=== PATIENT | female | born 2005 | race Caucasian/White ===

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

== ENCOUNTER 2023-02-21 03:01 | Emergency (ER) | payer BC, SELFPAY ==
[2023-02-21 03:05] VITALS: BP 149/110; PULSE 103; RESP 18; TEMP 36.9; O2SAT 99; BMI 45.6
--- NOTE | 2023-02-21 03:05 | ED_ITS ---
HPI - Abdominal Pain General: Chief Complaint: Nausea/Vomiting/Diarrhea Stated Complaint: vomiting blood, abd pain Time Seen by Provider: 02/21/23 03:02 History of Present Illness: Ms Montero is a 17-year-old female with significant past medical history of bulimia presented to the emergency department for hematemesis. She reports over the past few days not eating much and was at work tonight when she felt nauseous. She has had intermittent midepigastric pain and she vomited red blood mixed with mucousy looking substances. Denies associated fever. She has had mild lightheadedness. She reports vomiting less than normal with her bulimia lately and mostly just not eating. Intensity symptoms is moderate. Course has persisted. She does report 1 prior episode a few months ago of vomiting blood twice. No other specific changes in health, exacerbating, or alleviating factor s identified. Onset (ago): day(s) Location: Epigastric Quality: burning Associated Symptoms: Reports hematemesis and nausea; Denies coffee ground emesis, hematochezia and melena Review of Systems General: Reports: 10 or more systems reviewed and unremarkable except in HPI and below GI: Reports: nausea and hematemesis; Denies: coffee ground emesis, hematochezia or melena PFSH ED PFSH: Medical History Psychiatric care Trauma and stressor-related disorder Social History Smoking and tobacco status: former smoker Quit status (tobacco): has quit using tobacco Year quit tobacco: 2021 Second hand smoke exposure: Yes (Occ.) Smoking risk assessment/counseling performed?: No Alcohol intake: never Desire information about alcohol rehabilitation?: No Counseling given: No Substance/Drug Use: former Date of last use: 2021 Desire information about substance/drug rehabilitation?: No Counseling given: No Physical Exam Const: COMMON NORMALS: alert GENERAL APPEARANCE: cooperative and well developed HENMT: COMMON NORMALS: normocephalic and atraumatic HEAD & SCALP: norm ocephalic and atraumatic Eye: COMMON NORMALS: conjunctivae normal CONJUNCTIVA: Yes conjunctivae normal SCLERA: sclerae normal Neck/C-Spine: COMMON NORMALS: supple GENERAL: Yes trachea midline Resp: COMMON NORMALS: clear to auscultation bilaterally EFFORT & INSPECTION: Yes able to speak in complete sentences AUSCULTATION: clear to auscultation bilaterally Cardio: COMMON NORMALS: regular rhythm RATE: tachycardic RHYTHM: regular rhythm GI: COMMON NORMALS: Soft to palpation PALPATION: Yes Soft to palpation, No Tenderness to palpation present (GI), No Guarding due to palpation present (GI) and No Rigid due to palpation Extremity: GENERAL: Yes normal exam except as noted and No edema Neuro: COMMON NORMALS: moves all extremities SENSORIUM/ORIENTATION: Yes alert and No Orientation impaired Psych: COMMON NORMALS: mental status grossly normal and Normal thought process present THOUGHT PROCESS: Normal thought process present Course Vital Signs: Vital signs: Vital Signs Temperature 98.4 F 02/21/23 03:05 Pulse Rate 84 02/21/23 05:03 Respiratory Rate 18 02/21/23 05:03 Blood Pressure 117/87 02/21/23 05:03 Pulse Oximetry 96 02/21/23 05:03 Oxygen Delivery Me thod Room Air 02/21/23 03:52 MDM - Abdominal Pain Medical Decision Making 17-year-old female with history of bulimia presenting with episode of vomiting blood. Exam as above. Patient is nontoxic. No evidence of acute surgical abdomen or active hematemesis. EKG notable for sinus rhythm with normal axis and intervals, no STEMI. Labs with normal hemoglobin, no leukocytosis. Unremarkable metabolic panel. Normal coags. hCG negative. No UTI, perhaps mild dehydration given positive ketones. Chest x-ray with no lobar consolidation or pneumothorax. Patient treated with Protonix, analgesia, fluids, antiemetic. On reassessment she has not had recurrence and appears clinically improved and feels improved. Most likely allergy of symptoms is gastritis related hematemesis. Patient does not appear to need inpatient management at this time. Strict return precautions given. Plan to refer for outpatient endoscopy. The results of ED evaluation were discussed with the patient including prescriptions and/or symptomatic cares (if applicable) including appropriate and responsible use, followup plan, and return precautions. The patient verbalized understanding and felt safe for discharge. Medical Records I reviewed the patient's medical records. Lab Data I reviewed the patient's lab results. 02/21/23 03:13 02/21/23 03:13 Labs/Radiology: Radiology Impressions Chest X-Ray 02/21/23 03:59 IMPRESSION: No acute findings. Laboratory Results WBC 11.5 10^3/uL (4.5-13.0) 02/21/23 03:13 RBC 5.07 10^6/uL (4.1-5.3) 02/21/23 03:13 Hgb 13.1 g/dL (11.5-15.3) 02/21/23 03:13 Hct 41.3 % (37.0-47.0) 02/21/23 03:13 MCV 81.5 fl (81-99) 02/21/23 03:13 MCH 25.8 pg (28.0-34.0) L 02/21/23 03:13 MCHC 31.7 g/dL (30.0-36.0) 02/21/23 03:13 RDW 14.2 % (12.1-15.1) 02/21/23 03:13 Plt Count 483 10^3/cmm (130-400) H 02/21/23 03:13 MPV 9.3 fL (7.4-10.4) 02/21/23 03:13 Neut % (Auto) 66.8 % 02/21/23 03:13 Lymph % (Auto) 27.8 % 02/21/23 03:13 [place] % (Auto) 3.6 % 02/21/23 03:13 Eos % (Auto) 1.0 % 02/21/23 03:13 Baso % (Auto) 0.4 % 02/21/23 03:13 Neut # (Auto) 7.71 10^3/uL (1.8-8.0) 02/21/23 03:13 Lymph # (Auto) 3.2 10^3/uL (1.5-6.5) 02/21/23 03:13 [place] # (Auto) 0.4 10^3/uL (0.2-0.9) 02/21/23 03:13 Eos # (Auto) 0.1 10^3/uL (0.0-0.8) 02/21/23 03:13 Baso # (Auto) 0.1 10^3/uL (0.0-0.1) 02/21/23 03:13 Nucleated RBC % (auto) 0 % 02/21/23 03:13 Nucleated RBCs # 0.0 /100WBC 02/21/23 03:13 PT 14.00 SECONDS (12.1-14.9) 02/21/23 03:13 INR 1.04 (0.8-1.2) 02/21/23 03:13 Sodium 139 mmol/L (136-145) 02/21/23 03:13 Potassium 3.7 mmol/L (3.5-5.1) 02/21/23 03:13 Chloride 104 mmol/L (98-107) 02/21/23 03:13 Carbon Dioxide 23 mmol/L (22-29) 02/21/23 03:13 Anion Gap 15.7 (5-19) 02/21/23 03:13 BUN 10 mg/dL (6-20) 02/21/23 03:13 Creatinine 0.8 mg/dL (0.5-0.9) 02/21/23 03:13 GFR Calculation 92.4 mL/min (90-130) 02/21/23 03:13 Glucose 73 mg/dL (65-115) 02/21/23 03:13 Calculated Osmolality 286 mOsm/kg (285-295) 02/21/23 03:13 Calcium 9.3 mg/dL (8.5-10.5) 02/21/23 03:13 Total Bilirubin 0.4 mg/dL (0.15-1.2) 02/21/23 03:13 AST 14 U/L (0-32) 02/21/23 03:13 ALT 10 U/L (0-33) 02/21/23 03:13 Alkaline Phosphatase 66 U/L (35-105) 02/21/23 03:13 Total Protein 7.7 g/dL (6.6-8.7) 02/21/23 03:13 Albumin 4.3 g/dL (3.5-5.2) 02/21/23 03:13 Globulin 3.4 g/dL (1.3-4.6) 02/21/23 03:13 Lipase 17 U/L (13-60) 02/21/23 03:13 HCG, Qual Negative (Negative) 02/21/23 03:13 Urine Color Yellow (Yellow) 02/21/23 03:59 Urine Appearance Clear (CLEAR) 02/21/23 03:59 Urine pH 5 (5-7) 02/21/23 03:59 Ur Specific [place] 1.030 (1.005-1.030) 02/21/23 03:59 Urine Protein Neg (Negative) 02/21/23 03:59 Urine Glucose (UA) Norm (Normal) 02/21/23 03:59 Urine Ketones 2+ (Negative) H 02/21/23 03:59 Urine Blood Neg (Negative) 02/21/23 03:59 Urine Nitrate Negative (Negative) 02/21/23 03:59 Urine Bilirubin Neg (Negative) 02/21/23 03:59 Urine Urobilinogen Neg mg/dL (Negative) 02/21/23 03:59 Ur Leukocyte Esterase Negative (Negative) 02/21/23 03:59 Discharge Plan Discharge Patient Disposition: Home Clinical Impression: Abdominal pain, Hematemesis Condition: Stable Prescriptions: No Action sertraline 100 mg tablet 200 mg PO DAILY Qty: 60 1RF Rx Instructions: Take two tableds once daily trazodone 50 mg tablet 50 mg PO .q hs PRN (Reason: insomnia) Qty: 30 1RF Rx Instructions: Take one tablet daily at bedtime, if needed for insomnia lamotrigine 150 mg tablet 150 mg PO .q hs Qty: 30 1RF Rx Instructions: Take one tablet daily at bedtime; stop 100 mg dose levonorgestrel-ethinyl estrad [Vienva] 0.1-20 mg-mcg tablet 1 tab PO DAILY Discharge Orders: Discharge ED (Routine); Ordered 02/21/23 Ordered By: Edgar Chen Referrals: Susanne Sinha MD [Primary Care Provider] - Discharge Diet: Advance as tolerated and Clear Liquid Discharge Activity: Increase activity as tolerated Patient Instructions: Diet for Stomach Ulcers and Gastritis (ED), Abdominal Pain (ED), Hematemesis (ED) Activity Restrictions/Additional Instructions: Thank you for visiting the emergency department. You were seen and evaluated for abdominal pain with vomiting blood. The exact cause of your symptoms is unclear however does not appear to need hospitalization at this time. Symptoms may be related to irritation of the stomach such as gastritis or ulcers. I will prescribe a proton pump inhibitor. I will message case management for follow-up with general surgery for consideration of endoscopy. Please also follow-up with your primary care provider. Return to the emergency department for recurrent symptoms, uncontrolled abdominal pain, inability to tolerate oral intake, syncope, chest pain, shortness of breath, or anything else that you are concerned about and feel needs emergency department evaluation. Stand Alone Forms: Work/School Release Coding Level of Care Code ED Perfect Bind Machine Operator for Yaneth Freeman
[2023-02-21 03:14] VITALS: O2SAT 100
[2023-02-21 03:15] VITALS: PULSE 80; RESP 16; O2SAT 99
[2023-02-21] MEDS: sodium chloride 0.9% 1,000 ML 999 ML IV (03:31)
[2023-02-21] MEDS: lidocaine 2% viscous 15 ML, aluminum-mag hydrox-simethicon 30 ML, sucralfate oral liq 1 GM PO (03:31)
[2023-02-21] MEDS: ondansetron 2 mg/ML SDV 2 mL 4 MG IVP (03:31)
[2023-02-21] MEDS: pantoprazole 40 mg SDV 80 MG IVP (03:31)
[2023-02-21 03:35] LABS: Basophils # 0.1 10^3/uL (0.0-0.1); Basophils % 0.4 %; Eosinophils # 0.1 10^3/uL (0.0-0.8); Hematocrit 41.3 % (37.0-47.0); Hemoglobin 13.1 g/dL (11.5-15.3); Lymphocytes # 3.2 10^3/uL (1.5-6.5); Lymphocytes % 27.8 %; Mean Corpuscular HGB Conc 31.7 g/dL (30.0-36.0); Mean Corpuscular Hemoglobin 25.8 pg (28.0-34.0); Mean Corpuscular Volume 81.5 fl (81-99); Mean Platelet Volume 9.3 fL (7.4-10.4); Monocytes # 0.4 10^3/uL (0.2-0.9); Monocytes % 3.6 %; Neutrophils # 7.71 10^3/uL (1.8-8.0); Neutrophils % 66.8 %; Nucleated Red Blood Cells % 0 %; Platelet Count 483 10^3/cmm (130-400); Red Blood Count 5.07 10^6/uL (4.1-5.3); Red Cell Distribution Width 14.2 % (12.1-15.1); White Blood Count 11.5 10^3/uL (4.5-13.0)
[2023-02-21 03:45] LABS: HCG, Serum Qual Negative (Negative)
[2023-02-21 03:52] VITALS: BP 149/110; PULSE 75; RESP 18; O2SAT 99
[2023-02-21 03:55] LABS: Alanine Aminotransferase 10 U/L (0-33); Albumin Level 4.3 g/dL (3.5-5.2); Alkaline Phosphatase 66 U/L (35-105); Anion Gap 15.7 (5-19); Aspartate Amino Transferase 14 U/L (0-32); Blood Urea Nitrogen 10 mg/dL (6-20); Calcium 9.3 mg/dL (8.5-10.5); Carbon Dioxide 23 mmol/L (22-29); Chloride 104 mmol/L (98-107); Creatinine Clr Calc Pharmacy 149.8353; Globulin 3.4 g/dL (1.3-4.6); Glomerular Filtration Rate 92.4 mL/min (90-130); Glucose 73 mg/dL (65-115); Lipase 17 U/L (13-60); Osmolality Calculated 286 mOsm/kg (285-295); Potassium 3.7 mmol/L (3.5-5.1); Sodium 139 mmol/L (136-145); Total Bilirubin 0.4 mg/dL (0.15-1.2); Total Protein 7.7 g/dL (6.6-8.7)
[2023-02-21 03:59] LABS: INR 1.04 (0.8-1.2)
--- NOTE | 2023-02-21 03:59 | XRR_ITS ---
PROCEDURE INFORMATION: Exam: XR Chest Exam date and time: 02/21/2023 4:05 AM Age: 17 years old Clinical indication: Other: Hematemesis TECHNIQUE: Imaging protocol: Radiologic exam of the chest. Views: 1 view. COMPARISON: No relevant prior studies available. FINDINGS: Lungs: Lungs are clear. Pleural spaces: There is no pleural effusion or pneumothorax. Heart/Mediastinum: Cardiomediastinal contours are unremarkable. Bones/joints: Bones are unremarkable. XR/XR chest 1V portable [id number] IMPRESSION: No acute findings.
[2023-02-21 04:04] LABS: Add Urine Microscopic? NO; Charge for UA Resulting for Rev
[2023-02-21 04:06] LABS: Glucose Urine UA Norm (Normal); Protein Urine Neg (Negative); Urine Appearance Clear (CLEAR); Urine Color Yellow (Yellow); pH Urine 5 (5-7)
[2023-02-21 04:07] LABS: Bilirubin Urine Neg (Negative); Blood Urine Neg (Negative); Ketones Urine 2+ (Negative); Leukocyte Esterase Urine Negative (Negative); Nitrate Urine Negative (Negative); Urobilinogen Urine Neg (Negative)
[2023-02-21 05:03] VITALS: BP 117/87; PULSE 84; RESP 18; O2SAT 96
--- NOTE | 2023-02-21 07:38 | DCPLANNER ---
Addendum entered by Tamie Kelly 03/15/23 15:40: radiology manager received the following message from the general surgery clinic regarding follow up appointment: patient declined Addendum entered by Tamie Kelly 03/05/23 10:47: radiology manager received the following message from the general surgery clinic regarding follow up appointment: left message 02/26 Original Note: radiology manager had message to schedule a follow up appointment for patient with general surgery. radiology manager sent patients information to the front office staff at general surgery. Patients information will be printed and reviewed. Clinic will call patient with appointment information.
== END 2023-02-21 05:08 | disposition home or self-care (01) ==
PROVIDERS: Emergency Provider Emergency Medicine; PCP Family Medicine
DX: K92.0 Hematemesis (principal); R10.13 Epigastric pain; Z87.891 Personal history of nicotine dependence
CPT/HCPCS: 71045; 80053; 81003; 83690; 84703; 85025; 85610; 96374; 96375; 99284; C9113; J2405; J7030